=== PATIENT | male | born 1960 | race Caucasian/White ===

== ENCOUNTER 2020-09-12 09:58 | Inpatient (IN) ==
[2020-09-12] MEDS ORDERED: DEXTROSE 50% 25 GM/50 ML VIAL IV PRN (11:25)
[2020-09-12] MEDS ORDERED: GLUCAGON 1 MG VIAL IM PRN (11:25)
[2020-09-12] MEDS ORDERED: SODIUM CHLORIDE 0.9% 1,000 ML IV SCH (11:30)
[2020-09-12] MEDS ORDERED: HEPARIN DRIP 25,000 UNITS/500 ML PREMIX IV SCH (13:30)
[2020-09-12] MEDS ORDERED: HEPARIN DRIP 25,000 UNITS/500 ML PREMIX IV ONE (14:10)
[2020-09-12] MEDS ORDERED: CLORAZEPATE 7.5 MG TABLET PO PRN (14:45)
[2020-09-12] MEDS: CHLORHEXIDINE 4% SOLN 118 ML BOTTLE TOP SCH ×2 (16:00→22:28)
[2020-09-12] MEDS: ALBUTEROL/IPRATROPIUM 3 ML NEB RESP TX SCH ×2 (16:10→18:55)
[2020-09-12 16:12] LABS: ABG HCO3 21.7 MMOL/L (20-26); ABG PCO2 28.1 MM HG (35-48); ABG PH 7.506 (7.35-7.45); ABG PO2 87.2 MM HG (80-95); ABG TCO2 22.6 MMOL/L (23-27)
[2020-09-12 16:13] LABS: Basophils % 0.2 % (0.0-0.8); Hematocrit 43.8 VOL% (42.0-52.0); Hemoglobin 15.2 GM/DL (14.0-18.0); Immature Granulocytes % 0.4 %; Immature Granulocytes Absolute 0.07 #; Lymphocytes % 5.6 % (21.2-54.2); Mean Corpuscular HGB Conc 34.7 GM/DL (32-36); Mean Platelet Volume 11.4 FL (9.6-12.0); Monocytes % 3.7 % (1.7-12.7); Neutrophils % 90.1 % (38.7-73.9); Platelet Count 228 T/CUMM (130-400); Red Blood Count 4.66 MC/CUMM (3.8-5.5); Red Cell Distribution Width 13.2 % (9.3-17.3); White Blood Count 18.1 T/CUMM (4-12)
[2020-09-12 16:24] LABS: PT Patient Result 10.8 SECS (9.8-11.9)
[2020-09-12 16:36] LABS: Partial Thromboplastin Time 51.5 SECS (23.9-33.8)
[2020-09-12 16:50] LABS: CKMB % 3.2 %
[2020-09-12 16:51] LABS: Troponin I 39.7 NG/ML (0.00-0.045)
[2020-09-12 17:01] LABS: Albumin 4.2 G/DL (3.4-5.0); Bilirubin,Total 0.6 MG/DL (0.2-1.0); Calcium 9.2 MG/DL (8.5-10.1); Potassium 4.2 MMOL/L (3.5-5.1); Total Protein 8.3 G/DL (6.4-8.3)
[2020-09-12 20:44] LABS: CKMB % 2.6 %; Troponin I 35.8 NG/ML (0.00-0.045)
[2020-09-12] MEDS: CHLORHEXIDINE 0.12% ORAL RINSE 60 ML BOTTLE SWISH/SPIT SCH (22:04)
[2020-09-13] MEDS: ALBUTEROL/IPRATROPIUM 3 ML NEB RESP TX SCH ×3 (01:30→15:07)
[2020-09-13 02:38] LABS: CKMB % 2.3 %; Troponin I 34.5 NG/ML (0.00-0.045)
[2020-09-13] MEDS ORDERED: CEFUROXIME INJ 1,500 MG in SYRINGE 1 EACH IV ONE (05:00)
[2020-09-13] MEDS ORDERED: DIAZEPAM 5 MG TABLET PO ONE (05:00)
[2020-09-13 05:24] LABS: Basophils # 0.1 10*3/uL (0.0-0.2); Basophils % 0.3 % (0.0-0.8); Eosinophils # 0.1 10*3/uL (0.0-0.87); Eosinophils % 0.9 % (0.00-10.9); Hematocrit 39.9 VOL% (42.0-52.0); Hemoglobin 13.8 GM/DL (14.0-18.0); Immature Granulocytes % 0.3 %; Immature Granulocytes Absolute 0.05 #; Lymphocytes # 2.8 10*3/uL (1.4-4.0); Lymphocytes % 18.4 % (21.2-54.2); Mean Corpuscular HGB Conc 34.6 GM/DL (32-36); Mean Corpuscular Volume 93.9 FL (87-102); Mean Platelet Volume 11.3 FL (9.6-12.0); Monocytes % 8.6 % (1.7-12.7); Neutrophils % 71.5 % (38.7-73.9); Platelet Count 206 T/CUMM (130-400); Red Blood Count 4.25 MC/CUMM (3.8-5.5); Red Cell Distribution Width 13.2 % (9.3-17.3); White Blood Count 15.2 T/CUMM (4-12)
[2020-09-13] MEDS ORDERED: PAPAVERINE 60 MG/2 ML VIAL ONE (05:27)
[2020-09-13] MEDS ORDERED: VANCOMYCIN 1,000 MG VIAL ONE (05:27)
[2020-09-13] MEDS ORDERED: VANCOMYCIN 500 MG VIAL ONE (05:28)
[2020-09-13 05:41] LABS: Calcium 8.7 MG/DL (8.5-10.1); Osmolality,Calculated 280.5 MOS/KG (273-304); Potassium 3.6 MMOL/L (3.5-5.1)
[2020-09-13] MEDS ORDERED: PANTOPRAZOLE 40 MG VIAL IV ONE (06:00)
[2020-09-13] MEDS ORDERED: SODIUM CHLORIDE 0.9% 1,000 ML IV SCH (06:00)
[2020-09-13] MEDS: CHLORHEXIDINE 4% SOLN 118 ML BOTTLE TOP SCH ×2 (06:12→10:53)
[2020-09-13] MEDS ORDERED: LIDOCAINE 2% 5 ML VIAL ONE ×2 (06:19→10:49)
[2020-09-13] MEDS ORDERED: AMINOCAPROIC ACID 5,000 MG/20 ML VIAL ONE (06:19)
[2020-09-13] MEDS ORDERED: SUFentanil 250 MCG/5 ML AMP ONE (06:19)
[2020-09-13] MEDS ORDERED: VECURONIUM 10 MG VIAL IV ONE (06:19)
[2020-09-13] MEDS ORDERED: ETOMIDATE 40 MG/20 ML VIAL IV ONE (06:19)
[2020-09-13] MEDS ORDERED: MIDAZOLAM 10 MG/2 ML VIAL ONE ×3 (06:19→09:11)
[2020-09-13] MEDS ORDERED: ePHEDrine 50 MG/ML VIAL ONE (07:07)
[2020-09-13 07:38] LABS: ABG Base Excess 0.6 MMOL/L (-2.5-2.5); ABG PCO2 32.8 MM HG (35-48); ABG PH 7.464 (7.35-7.45); ABG TCO2 20.4 MMOL/L (23-27); Glucose Heart Surgery 112 MG/DL (74-106); Hematocrit Heart Surgery 41.1 PERCENT (42-52); Hemoglobin Heart Surgery 13.4 G/DL (14.0-18.0); Ionized Calcium Arterial 1.09 MMOL/L (1.21-1.46); PCO2 Patient Temp Arterial 32.8 MMHG; PH Patient Temp Arterial 7.464; Patient Temperature 37 CELCIUS; Potassium Heart/CVR 3.7 MMOL/L (3.5-5.1); Sodium Heart/CVR 138 MMOL/L (135-145)
[2020-09-13] MEDS ORDERED: CALCIUM CHLORIDE 1,000 MG/10 ML VIAL IV ONE ×2 (09:10)
[2020-09-13] MEDS ORDERED: LACTATED RINGERS 1,000 ML IV ONE ×3 (09:22→15:23)
[2020-09-13] MEDS ORDERED: SODIUM CHLORIDE 0.9% 250 ML IV ONE (09:22)
[2020-09-13] MEDS ORDERED: SODIUM CHLORIDE 0.9% 1,000 ML IV ONE (09:22)
[2020-09-13] MEDS ORDERED: HEPARIN/NACL 0.9% 2 UNITS/ML 500 ML IV ONE (09:22)
[2020-09-13] MEDS ORDERED: PHENYLEPHRINE 1 MG/10 ML SYRINGE IV ONE (09:22)
[2020-09-13] MEDS ORDERED: SEVOFLURANE 1 UNIT/15 MINUTE INH ONE ×24 (09:22→12:25)
[2020-09-13 09:26] LABS: Hemoglobin Heart Surgery 8.7 G/DL (14.0-18.0); PH Patient Temp Venous 7.41; PO2 Patient Temp Venous 46.6 MM HG; VBG Base Excess 0.2 MEQ/L (0-4); VBG HCO3 24.4 MEQ/L (24-28); VBG Oxygen Saturation 81.3 %; VBG PH 7.41; VBG PO2 46.6 MMHG (17-40); VBG Total CO2 22.9 MMOL/L
[2020-09-13 10:01] LABS: Hematocrit Heart Surgery 26.9 PERCENT (42-52); Hemoglobin Heart Surgery 8.7 G/DL (14.0-18.0); PCO2 Patient Temp Venous 38.4 MM HG; PH Patient Temp Venous 7.394; PO2 Patient Temp Venous 50.8 MM HG; Potassium Heart/CVR 3.8 MMOL/L (3.5-5.1); VBG Base Excess -1.2 MEQ/L (0-4); VBG HCO3 23.2 MEQ/L (24-28); VBG Oxygen Saturation 84.6 %; VBG PCO2 38.4 MMHG (41-51); VBG PH 7.394; VBG PO2 50.8 MMHG (17-40); VBG Total CO2 21.7 MMOL/L
[2020-09-13 10:21] LABS: Bacteria,Urine Occasional /HPF (Few); Bilirubin,Urine Negative (Negative); Blood, Urine Negative (Negative); Glucose,Urine (UA) Negative (Negative); Ketones,Urine Negative (Negative); Mucus,Urine Occasional /LPF (Occasional); Nitrite,Urine Negative (Negative); Protein,Urine Negative; RBC,Urine 3 /HPF (0-4); Urine Appearance CLEAR (Clear); Urine Color Yellow (Yellow); Urine Specific Gravity 1.027 (1.001-1.035)
[2020-09-13 10:23] LABS: Hematocrit Heart Surgery 25.7 PERCENT (42-52); Hemoglobin Heart Surgery 8.3 G/DL (14.0-18.0); PCO2 Patient Temp Venous 38.8 MM HG; PH Patient Temp Venous 7.426; Potassium Heart/CVR 3.7 MMOL/L (3.5-5.1); VBG Base Excess 1.2 MEQ/L (0-4); VBG HCO3 25.3 MEQ/L (24-28); VBG Oxygen Saturation 84.3 %; VBG PCO2 38.8 MMHG (41-51); VBG PH 7.426; VBG Total CO2 23.7 MMOL/L
[2020-09-13] MEDS ORDERED: POTASSIUM CHLORIDE RIDER 100 ML IV ONE (10:34)
[2020-09-13] MEDS ORDERED: CALCIUM CHLORIDE 1,000 MG/10 ML SYRINGE IV ONE (10:34)
[2020-09-13] MEDS ORDERED: SODIUM BICARBONATE 50 MEQ/50 ML VIAL IV ONE ×2 (10:34→10:49)
[2020-09-13] MEDS ORDERED: NITROPRUSSIDE 50 MG/2 ML VIAL ONE (10:34)
[2020-09-13] MEDS ORDERED: EPINEPHrine 1 MG/10 ML SYRINGE ONE (10:35)
[2020-09-13] MEDS ORDERED: ALBUMIN 5% 12.5 GM/250 ML VIAL IV ONE (10:36)
[2020-09-13] MEDS ORDERED: PHENYLEPHRINE DRIP 40 MG/250 ML PREMIX IV ONE (10:38)
[2020-09-13] MEDS ORDERED: DEXTROSE 5% KCL 20 MEQ 20 MEQ/1,000 ML BAG IV ONE (10:47)
[2020-09-13] MEDS ORDERED: MANNITOL 100 GM/500 ML BAG IV ONE (10:47)
[2020-09-13] MEDS ORDERED: PROTAMINE SULFATE 250 MG/25 ML VIAL IV ONE (10:47)
[2020-09-13] MEDS ORDERED: ALBUMIN 25% 25 GM/100 ML VIAL IV ONE (10:47)
[2020-09-13] MEDS ORDERED: MAGNESIUM SULFATE 5 GM/10 ML VIAL IV ONE (10:47)
[2020-09-13] MEDS ORDERED: PROTAMINE SULFATE 50 MG/5 ML VIAL IV ONE ×2 (10:48→12:55)
[2020-09-13] MEDS ORDERED: FUROSEMIDE 20 MG/2 ML VIAL ONE (10:48)
[2020-09-13] MEDS ORDERED: HEPARIN 10,000 UNIT/10 ML VIAL ONE (10:48)
[2020-09-13] MEDS ORDERED: methylPREDNISolone SOD SUC 1,000 MG/8 ML VIAL ONE (10:49)
[2020-09-13] MEDS: CHLORHEXIDINE 0.12% ORAL RINSE 60 ML BOTTLE SWISH/SPIT SCH ×2 (10:53→21:55)
[2020-09-13 10:58] LABS: Hematocrit Heart Surgery 26.8 PERCENT (42-52); Hemoglobin Heart Surgery 8.6 G/DL (14.0-18.0); PCO2 Patient Temp Venous 34.1 MM HG; PH Patient Temp Venous 7.473; PO2 Patient Temp Venous 36.9 MM HG; VBG Base Excess 1.6 MEQ/L (0-4); VBG HCO3 25.4 MEQ/L (24-28); VBG PCO2 34.1 MMHG (41-51); VBG PH 7.473; VBG PO2 36.9 MMHG (17-40); VBG Total CO2 23.1 MMOL/L
[2020-09-13 11:44] LABS: ABG Base Excess -0.6 MMOL/L (-2.5-2.5); ABG HCO3 23.9 MMOL/L (20-26); ABG PCO2 38.2 MM HG (35-48); ABG PH 7.404 (7.35-7.45); ABG PO2 86.7 MM HG (80-95); ABG TCO2 22.1 MMOL/L (23-27); Glucose Heart Surgery 206 MG/DL (74-106); Hematocrit Heart Surgery 27.2 PERCENT (42-52); Hemoglobin Heart Surgery 8.8 G/DL (14.0-18.0); Ionized Calcium Arterial 1.19 MMOL/L (1.21-1.46); PCO2 Patient Temp Arterial 38.2 MMHG; PH Patient Temp Arterial 7.404; PO2 Patient Temp Arterial 86.7 MM HG; Patient Temperature 37 CELCIUS; Potassium Heart/CVR 3.2 MMOL/L (3.5-5.1); Sodium Heart/CVR 136 MMOL/L (135-145)
[2020-09-13] MEDS ORDERED: THROMBIN TOPICAL (RECOMBINANT) 5,000 UNIT VIAL TOP ONE (12:55)
[2020-09-13] MEDS ORDERED: SODIUM CHLORIDE 0.9% 1,000 ML IV PRN ×2 (12:57→19:57)
[2020-09-13] MEDS: SODIUM CHLORIDE 0.45% 1,000 ML IV SCH ×2 (13:00)
[2020-09-13] MEDS ORDERED: NITROPRUSSIDE 100 MG in DEXTROSE 5% 250 ML IV PRN (13:03)
[2020-09-13] MEDS ORDERED: MIDAZOLAM 10 MG/2 ML VIAL IV PRN (13:03)
[2020-09-13] MEDS ORDERED: INSULIN REGULAR 100 UNIT/ML IV PRN (13:03)
[2020-09-13] MEDS ORDERED: MAGNESIUM SULF RIDER 4 GM in PREMIX 1 EACH IV PRN (13:03)
[2020-09-13] MEDS ORDERED: ONDANSETRON 4 MG/2 ML VIAL IV PRN (13:03)
[2020-09-13] MEDS ORDERED: MAGNESIUM SULF RIDER 2 GM in PREMIX 1 EACH IV PRN (13:03)
[2020-09-13] MEDS ORDERED: INSULIN REGULAR DRIP 100 ML IV SCH (13:03)
[2020-09-13] MEDS ORDERED: ACETAMINOPHEN 650 MG SUPP RECTAL PRN (13:03)
[2020-09-13] MEDS ORDERED: INSULIN REGULAR 100 UNIT/ML IV ONE (13:03)
[2020-09-13] MEDS ORDERED: MORPHINE 4 MG/1 ML VIAL IV PRN (13:03)
[2020-09-13] MEDS ORDERED: CALCIUM CHLORIDE 1,000 MG/10 ML SYRINGE IV PRN (13:03)
[2020-09-13] MEDS ORDERED: VECURONIUM 10 MG VIAL IV PRN ×2 (13:03)
[2020-09-13] MEDS ORDERED: DEXTROSE 50% 25 GM/50 ML VIAL IV PRN ×2 (13:03)
[2020-09-13] MEDS ORDERED: LACTATED RINGERS 250 ML IV PRN (13:03)
[2020-09-13] MEDS ORDERED: POTASSIUM CHLORIDE RIDER 10 MEQ in PREMIX 1 EACH IV PRN (13:03)
[2020-09-13] MEDS ORDERED: PHENYLEPHRINE DRIP 20 MG/250 ML PREMIX IV ONE (13:11)
[2020-09-13 13:39] LABS: Basophils % 0.2 % (0.0-0.8); Eosinophils # 0.1 10*3/uL (0.0-0.87); Eosinophils % 0.5 % (0.00-10.9); Hematocrit 21.9 VOL% (42.0-52.0); Hemoglobin 7.7 GM/DL (14.0-18.0); Immature Granulocytes % 0.8 %; Immature Granulocytes Absolute 0.14 #; Lymphocytes # 1.3 10*3/uL (1.4-4.0); Mean Corpuscular HGB Conc 35.2 GM/DL (32-36); Mean Corpuscular Volume 96.5 FL (87-102); Mean Platelet Volume 10.3 FL (9.6-12.0); Monocytes % 5.6 % (1.7-12.7); Neutrophils % 85.9 % (38.7-73.9); Platelet Count 173 T/CUMM (130-400); Red Blood Count 2.27 MC/CUMM (3.8-5.5); Red Cell Distribution Width 13.2 % (9.3-17.3); White Blood Count 18.5 T/CUMM (4-12)
[2020-09-13 13:42] LABS: ABG Base Excess -0.4 MMOL/L (-2.5-2.5); ABG HCO3 24.1 MMOL/L (20-26); ABG Oxygen Saturation 99.4 % (95-100); ABG PCO2 44.5 MM HG (35-48); ABG TCO2 23.5 MMOL/L (23-27); Glucose Heart Surgery 178 MG/DL (74-106); Hematocrit Heart Surgery 24.6 PERCENT (42-52); Hemoglobin Heart Surgery 7.9 G/DL (14.0-18.0)
[2020-09-13] MEDS: PHENYLEPHRINE DRIP 40 MG/250 ML PREMIX IV PRN ×3 (13:46→22:19)
[2020-09-13 13:51] LABS: INR 1.3; PT Patient Result 13.7 SECS (9.8-11.9)
[2020-09-13 14:17] LABS: Albumin 2.9 G/DL (3.4-5.0); Bilirubin,Total 1.4 MG/DL (0.2-1.0); Calcium 8.5 MG/DL (8.5-10.1); Osmolality,Calculated 290.1 MOS/KG (273-304); Total Protein 5.7 G/DL (6.4-8.3)
[2020-09-13 14:24] LABS: Hematocrit Heart Surgery 27.2 PERCENT (42-52); Hemoglobin Heart Surgery 8.8 G/DL (14.0-18.0); PCO2 Patient Temp Venous 57.7 MM HG; PH Patient Temp Venous 7.255; PO2 Patient Temp Venous 35.2 MM HG; Potassium Heart/CVR 4.7 MMOL/L (3.5-5.1); VBG Base Excess -2.1 MEQ/L (0-4); VBG Oxygen Saturation 55.8 %; VBG PCO2 57.7 MMHG (41-51); VBG PH 7.255; VBG PO2 35.2 MMHG (17-40); VBG Total CO2 24.3 MMOL/L
[2020-09-13 14:27] LABS: CKMB % 4.4 %
[2020-09-13 14:29] LABS: Troponin I 45.7 NG/ML (0.00-0.045)
[2020-09-13] MEDS: ALBUMIN 5% 12.5 GM in PREMIX 1 EACH IV PRN ×3 (14:30→17:47)
[2020-09-13 15:14] LABS: ABG Base Excess -2.2 MMOL/L (-2.5-2.5); ABG HCO3 22.6 MMOL/L (20-26); ABG Oxygen Saturation 96.9 % (95-100); ABG PCO2 40.2 MM HG (35-48); ABG PH 7.365 (7.35-7.45); ABG PO2 87.4 MM HG (80-95); ABG TCO2 21.3 MMOL/L (23-27); Glucose Heart Surgery 177 MG/DL (74-106); Hematocrit Heart Surgery 27.7 PERCENT (42-52); Hemoglobin Heart Surgery 8.9 G/DL (14.0-18.0)
[2020-09-13] MEDS: KETOROLAC 30 MG/1 ML VIAL IV SCH ×3 (15:20→22:40)
[2020-09-13] MEDS: POTASSIUM CHLORIDE RIDER 20 MEQ in PREMIX 1 EACH IV PRN (15:28)
[2020-09-13 17:18] LABS: ABG Base Excess -1.1 MMOL/L (-2.5-2.5); ABG HCO3 23.5 MMOL/L (20-26); ABG Oxygen Saturation 98.1 % (95-100); ABG PCO2 39.1 MM HG (35-48); ABG TCO2 20.5 MMOL/L (23-27); Glucose Heart Surgery 154 MG/DL (74-106); Hematocrit Heart Surgery 42.1 PERCENT (42-52); Hemoglobin Heart Surgery 13.7 G/DL (14.0-18.0); Potassium Heart/CVR 4.6 MMOL/L (3.5-5.1)
[2020-09-13] MEDS ORDERED: ALBUTEROL/IPRATROPIUM 3 ML NEB RESP TX ONE (19:19)
[2020-09-13] MEDS ORDERED: FUROSEMIDE 40 MG/4 ML VIAL IV ONE (19:35)
[2020-09-13 19:45] LABS: ABG Base Excess -0.6 MMOL/L (-2.5-2.5); ABG HCO3 23.9 MMOL/L (20-26); ABG Oxygen Saturation 98.7 % (95-100); ABG PCO2 38.7 MM HG (35-48); ABG TCO2 22.1 MMOL/L (23-27); Glucose Heart Surgery 132 MG/DL (74-106); Hematocrit Heart Surgery 27.8 PERCENT (42-52); Hemoglobin Heart Surgery 8.9 G/DL (14.0-18.0); Potassium Heart/CVR 4.7 MMOL/L (3.5-5.1)
[2020-09-13] MEDS: DOBUTamine 500 MG/250 ML PREMIX IV SCH (20:13)
[2020-09-13] MEDS ORDERED: DEXMEDETOMIDINE 400 MCG in SODIUM CHLORIDE 0.9% 96 ML IV PRN (20:15)
[2020-09-13] MEDS: MIDAZOLAM 2 MG/2 ML VIAL IV PRN ×2 (20:15→21:29)
[2020-09-13] MEDS: CEFUROXIME INJ 1,500 MG in SYRINGE 1 EACH IV SCH (21:57)
[2020-09-13 23:04] LABS: CKMB % 3.5 %; Troponin I 25.3 NG/ML (0.00-0.045)
[2020-09-13] MEDS ORDERED: HALOPERIDOL 5 MG/ML AMP IV ONE (23:44)
[2020-09-14 00:22] LABS: ABG Base Excess 1.9 MMOL/L (-2.5-2.5); ABG HCO3 25.6 MMOL/L (20-26); ABG Oxygen Saturation 97.1 % (95-100); ABG PCO2 35.7 MM HG (35-48); ABG PH 7.473 (7.35-7.45); ABG PO2 100.1 MM HG (80-95); ABG TCO2 26.7 MMOL/L (23-27); Glucose Heart Surgery 139 MG/DL (74-106); Hemoglobin Heart Surgery 8.3 G/DL (14.0-18.0); Potassium Heart/CVR 3.6 MMOL/L (3.5-5.1)
[2020-09-14] MEDS: POTASSIUM CHLORIDE RIDER 20 MEQ in PREMIX 1 EACH IV PRN ×2 (00:48→05:38)
[2020-09-14] MEDS: KETOROLAC 30 MG/1 ML VIAL IV SCH ×5 (02:20→20:12)
[2020-09-14 03:03] LABS: ABG Base Excess 0.9 MMOL/L (-2.5-2.5); ABG HCO3 25.2 MMOL/L (20-26); ABG PCO2 35.6 MM HG (35-48); ABG PH 7.448 (7.35-7.45); ABG TCO2 22.3 MMOL/L (23-27); Glucose Heart Surgery 134 MG/DL (74-106); Hematocrit Heart Surgery 31.2 PERCENT (42-52); Hemoglobin Heart Surgery 10.1 G/DL (14.0-18.0); Potassium Heart/CVR 4.1 MMOL/L (3.5-5.1)
[2020-09-14 04:34] LABS: ABG Base Excess 0.7 MMOL/L (-2.5-2.5); ABG HCO3 24.2 MMOL/L (20-26); ABG Oxygen Saturation 97.5 % (95-100); ABG PCO2 34.6 MM HG (35-48); ABG PH 7.463 (7.35-7.45); ABG PO2 105.9 MM HG (80-95); ABG TCO2 25.3 MMOL/L (23-27); Glucose Heart Surgery 126 MG/DL (74-106); Hemoglobin Heart Surgery 10.2 G/DL (14.0-18.0); Potassium Heart/CVR 3.9 MMOL/L (3.5-5.1)
[2020-09-14 04:56] LABS: Hematocrit 27.5 VOL% (42.0-52.0); Hemoglobin 9.8 GM/DL (14.0-18.0); Immature Granulocytes % 0.5 %; Immature Granulocytes Absolute 0.05 #; Lymphocytes # 0.9 10*3/uL (1.4-4.0); Lymphocytes % 9.3 % (21.2-54.2); Mean Corpuscular HGB Conc 35.6 GM/DL (32-36); Mean Corpuscular Volume 87.6 FL (87-102); Mean Platelet Volume 10.9 FL (9.6-12.0); Monocytes % 7.1 % (1.7-12.7); Neutrophils % 83.1 % (38.7-73.9); Platelet Count 125 T/CUMM (130-400); Red Blood Count 3.14 MC/CUMM (3.8-5.5); Red Cell Distribution Width 14.6 % (9.3-17.3); White Blood Count 9.9 T/CUMM (4-12)
[2020-09-14 05:15] LABS: Albumin 3.2 G/DL (3.4-5.0); Bilirubin,Direct 0.42 MG/DL (0.0-0.20); Bilirubin,Total 1.1 MG/DL (0.2-1.0); Calcium 7.5 MG/DL (8.5-10.1); Osmolality,Calculated 290.8 MOS/KG (273-304); Potassium 4.1 MMOL/L (3.5-5.1); Total Protein 5.5 G/DL (6.4-8.3)
[2020-09-14 05:16] LABS: CKMB % 4.1 %
[2020-09-14 05:18] LABS: Troponin I 24.5 NG/ML (0.00-0.045)
[2020-09-14] MEDS ORDERED: FUROSEMIDE 40 MG/4 ML VIAL IV ONE ×2 (05:28→17:54)
[2020-09-14 06:24] LABS: Hypochromasia 1+; Microcytosis 1+
[2020-09-14] MEDS: PHENYLEPHRINE DRIP 40 MG/250 ML PREMIX IV PRN (06:35)
[2020-09-14 07:01] LABS: ABG Base Excess 1.3 MMOL/L (-2.5-2.5); ABG HCO3 25.5 MMOL/L (20-26); ABG Oxygen Saturation 98.8 % (95-100); ABG PCO2 38.1 MM HG (35-48); ABG PH 7.432 (7.35-7.45); ABG TCO2 23.1 MMOL/L (23-27); Glucose Heart Surgery 125 MG/DL (74-106); Hematocrit Heart Surgery 30.6 PERCENT (42-52); Hemoglobin Heart Surgery 9.9 G/DL (14.0-18.0); Potassium Heart/CVR 4.1 MMOL/L (3.5-5.1)
[2020-09-14] MEDS: MORPHINE 10 MG/1 ML VIAL IV PRN ×3 (07:44→15:15)
[2020-09-14] MEDS ORDERED: LIDOCAINE 1%/EPI INJ 20 ML VIAL ONE (08:36)
[2020-09-14] MEDS ORDERED: PANTOPRAZOLE 40 MG VIAL IV ONE (09:07)
[2020-09-14 09:22] LABS: ABG Base Excess 0.6 MMOL/L (-2.5-2.5); ABG Oxygen Saturation 98.8 % (95-100); ABG PCO2 37.1 MM HG (35-48); ABG PH 7.431 (7.35-7.45); ABG TCO2 22.5 MMOL/L (23-27)
[2020-09-14 11:22] LABS: ABG Base Excess -0.4 MMOL/L (-2.5-2.5); ABG HCO3 24.1 MMOL/L (20-26); ABG Oxygen Saturation 97.9 % (95-100); ABG PCO2 37.7 MM HG (35-48); ABG PH 7.411 (7.35-7.45); ABG PO2 97.6 MM HG (80-95); ABG TCO2 21.9 MMOL/L (23-27); Glucose Heart Surgery 120 MG/DL (74-106); Hematocrit Heart Surgery 29.7 PERCENT (42-52); Hemoglobin Heart Surgery 9.6 G/DL (14.0-18.0); Potassium Heart/CVR 3.9 MMOL/L (3.5-5.1)
[2020-09-14] MEDS: CHLORHEXIDINE 0.12% ORAL RINSE 60 ML BOTTLE SWISH/SPIT SCH ×2 (11:25→20:14)
[2020-09-14] MEDS: CEFUROXIME INJ 1,500 MG in SYRINGE 1 EACH IV SCH ×2 (11:25→20:14)
[2020-09-14] MEDS: INSULIN REGULAR 100 UNIT/ML SUBCUT SCH ×3 (11:37→20:25)
[2020-09-14] MEDS: SODIUM CHLORIDE 0.45% 1,000 ML IV SCH ×2 (14:28)
[2020-09-14 15:46] LABS: CKMB % 3.2 %
[2020-09-14 15:48] LABS: Troponin I 23.1 NG/ML (0.00-0.045)
[2020-09-15] MEDS ORDERED: FUROSEMIDE 40 MG/4 ML VIAL IV ONE ×2 (02:05→18:09)
[2020-09-15 04:21] LABS: Basophils % 0.1 % (0.0-0.8); Eosinophils % 0.1 % (0.00-10.9); Hematocrit 22.9 VOL% (42.0-52.0); Hemoglobin 8.1 GM/DL (14.0-18.0); Immature Granulocytes % 0.8 %; Immature Granulocytes Absolute 0.13 #; Lymphocytes % 12.7 % (21.2-54.2); Mean Corpuscular HGB Conc 35.4 GM/DL (32-36); Mean Corpuscular Volume 90.2 FL (87-102); Mean Platelet Volume 12.1 FL (9.6-12.0); Monocytes % 7.7 % (1.7-12.7); NRBC # 0.02 10*3/uL; Neutrophils % 78.6 % (38.7-73.9); Platelet Count 106 T/CUMM (130-400); Red Blood Count 2.54 MC/CUMM (3.8-5.5); Red Cell Distribution Width 14.8 % (9.3-17.3)
[2020-09-15] MEDS: MORPHINE 10 MG/1 ML VIAL IV PRN (04:29)
[2020-09-15 04:47] LABS: Hypochromasia 1+; Microcytosis 1+
[2020-09-15 04:48] LABS: Platelet Estimate Decreased
[2020-09-15 04:50] LABS: Albumin 3.2 G/DL (3.4-5.0); Bilirubin,Direct 0.31 MG/DL (0.0-0.20); Bilirubin,Total 1.1 MG/DL (0.2-1.0); Calcium 7.4 MG/DL (8.5-10.1); Osmolality,Calculated 282.7 MOS/KG (273-304); Potassium 3.7 MMOL/L (3.5-5.1); Total Protein 5.8 G/DL (6.4-8.3)
[2020-09-15] MEDS: POTASSIUM CHLORIDE RIDER 20 MEQ in PREMIX 1 EACH IV PRN (05:40)
[2020-09-15] MEDS: INSULIN REGULAR 100 UNIT/ML SUBCUT SCH (08:10)
[2020-09-15] MEDS: CLORAZEPATE 7.5 MG TABLET PO PRN ×2 (08:11→16:00)
[2020-09-15] MEDS: ASPIRIN EC 81 MG TABLET PO SCH (08:11)
[2020-09-15] MEDS: CHLORHEXIDINE 0.12% ORAL RINSE 60 ML BOTTLE SWISH/SPIT SCH ×2 (08:12→20:59)
[2020-09-15] MEDS ORDERED: MAGNESIUM SULF RIDER 4 GM in PREMIX 1 EACH IV PRN (09:18)
[2020-09-15] MEDS ORDERED: MAGNESIUM HYDROXIDE SUSP 30 ML UDCUP PO PRN (09:18)
[2020-09-15] MEDS ORDERED: GLUCAGON 1 MG VIAL IM PRN (09:18)
[2020-09-15] MEDS ORDERED: ONDANSETRON 4 MG/2 ML VIAL IV PRN (09:18)
[2020-09-15] MEDS ORDERED: ZALEPLON 5 MG CAPSULE PO PRN (09:18)
[2020-09-15] MEDS ORDERED: MAGNESIUM SULF RIDER 2 GM in PREMIX 1 EACH IV PRN (09:18)
[2020-09-15] MEDS ORDERED: ALUMINUM/MAGNES/SIMETH MAX STR 30 ML UDCUP PO PRN (09:18)
[2020-09-15] MEDS ORDERED: DEXTROSE 50% 25 GM/50 ML VIAL IV PRN (09:18)
[2020-09-15] MEDS ORDERED: SODIUM CHLOR 0.45% KCL 20 MEQ 20 MEQ/1,000 ML BAG IV SCH (09:30)
[2020-09-15] MEDS: PANTOPRAZOLE 40 MG TABLET PO SCH (11:19)
[2020-09-15 11:33] LABS: CKMB % 1.3 %
[2020-09-15 11:35] LABS: Troponin I 15.4 NG/ML (0.00-0.045)
[2020-09-15] MEDS ORDERED: ALBUTEROL/IPRATROPIUM 3 ML NEB RESP TX ONE (12:09)
[2020-09-15] MEDS: oxyCODONE/ACETAMINOPHEN 5-325 MG TABLET PO PRN (12:16)
[2020-09-15] MEDS: ALBUTEROL/IPRATROPIUM 3 ML NEB RESP TX SCH ×2 (13:36→19:30)
[2020-09-15] MEDS ORDERED: HYDROmorphone 2 MG/1 ML VIAL IV PRN (18:09)
[2020-09-15] MEDS ORDERED: ALPRAZolam 0.5 MG TABLET PO PRN (18:11)
[2020-09-15] MEDS: DOBUTamine 500 MG/250 ML PREMIX IV SCH (18:33)
[2020-09-16] MEDS: ALBUTEROL/IPRATROPIUM 3 ML NEB RESP TX SCH ×4 (00:08→19:43)
[2020-09-16 05:34] LABS: Basophils % 0.2 % (0.0-0.8); Eosinophils # 0.1 10*3/uL (0.0-0.87); Eosinophils % 0.8 % (0.00-10.9); Hematocrit 28.8 VOL% (42.0-52.0); Immature Granulocytes % 1.1 %; Immature Granulocytes Absolute 0.14 #; Lymphocytes # 1.5 10*3/uL (1.4-4.0); Lymphocytes % 11.5 % (21.2-54.2); Mean Corpuscular HGB Conc 34.7 GM/DL (32-36); Mean Corpuscular Volume 89.7 FL (87-102); Mean Platelet Volume 11.9 FL (9.6-12.0); Monocytes % 9.5 % (1.7-12.7); NRBC # 0.16 10*3/uL; Neutrophils % 76.9 % (38.7-73.9); Platelet Count 121 T/CUMM (130-400); Red Cell Distribution Width 15.5 % (9.3-17.3); White Blood Count 13.2 T/CUMM (4-12)
[2020-09-16 05:36] LABS: Red Blood Count 3.21 MC/CUMM (3.8-5.5)
[2020-09-16 05:37] LABS: Albumin 3.1 G/DL (3.4-5.0); Bilirubin,Direct 0.52 MG/DL (0.0-0.20); Bilirubin,Total 1.2 MG/DL (0.2-1.0); Calcium 7.8 MG/DL (8.5-10.1); Osmolality,Calculated 281.5 MOS/KG (273-304); Potassium 3.4 MMOL/L (3.5-5.1); Total Protein 5.9 G/DL (6.4-8.3)
[2020-09-16] MEDS ORDERED: FUROSEMIDE 40 MG/4 ML VIAL IV ONE ×2 (06:00)
[2020-09-16 06:37] LABS: Alanine Aminotransferase 161 U/L (16-61); Albumin 3.1 G/DL (3.4-5.0); Alkaline Phosphatase 62 U/L (45-117); Aspartate Amino Transferase 92 U/L (0-37); Bilirubin,Indirect 0.6 MG/DL (0.0-1.0); Total Protein 5.7 G/DL (6.4-8.3)
[2020-09-16] MEDS: DOCUSATE SODIUM 100 MG CAPSULE PO SCH (09:00)
[2020-09-16] MEDS: PANTOPRAZOLE 40 MG TABLET PO SCH (09:00)
[2020-09-16] MEDS: FERROUS SULFATE 325 MG TABLET PO SCH (09:01)
[2020-09-16] MEDS: ASPIRIN EC 81 MG TABLET PO SCH (09:01)
[2020-09-16] MEDS: CHLORHEXIDINE 0.12% ORAL RINSE 60 ML BOTTLE SWISH/SPIT SCH ×2 (09:02→20:18)
[2020-09-16] MEDS ORDERED: NICOTINE 21 MG/24 HR PATCH TRANSDERM PRN (09:06)
[2020-09-16] MEDS ORDERED: FUROSEMIDE 40 MG/4 ML VIAL IV SCH (16:00)
[2020-09-16] MEDS: CLORAZEPATE 7.5 MG TABLET PO PRN (20:18)
[2020-09-16] MEDS: ACETAMINOPHEN 325 MG TABLET PO PRN (20:18)
[2020-09-17] MEDS: ALBUTEROL/IPRATROPIUM 3 ML NEB RESP TX SCH ×4 (00:08→18:52)
[2020-09-17 05:58] LABS: Basophils % 0.2 % (0.0-0.8); Eosinophils # 0.2 10*3/uL (0.0-0.87); Eosinophils % 1.4 % (0.00-10.9); Hematocrit 30.4 VOL% (42.0-52.0); Hemoglobin 10.4 GM/DL (14.0-18.0); Immature Granulocytes % 1.1 %; Immature Granulocytes Absolute 0.18 #; Lymphocytes # 2.1 10*3/uL (1.4-4.0); Lymphocytes % 12.8 % (21.2-54.2); Mean Corpuscular HGB Conc 34.2 GM/DL (32-36); Mean Corpuscular Volume 89.9 FL (87-102); Mean Platelet Volume 11.2 FL (9.6-12.0); Monocytes % 11.2 % (1.7-12.7); NRBC # 0.06 10*3/uL; Neutrophils % 73.3 % (38.7-73.9); Platelet Count 164 T/CUMM (130-400); Red Blood Count 3.38 MC/CUMM (3.8-5.5); Red Cell Distribution Width 14.9 % (9.3-17.3); White Blood Count 16.2 T/CUMM (4-12)
[2020-09-17 06:13] LABS: Albumin 3.1 G/DL (3.4-5.0); Bilirubin,Direct 0.52 MG/DL (0.0-0.20); Bilirubin,Indirect 1.6 MG/DL (0.0-1.0); Bilirubin,Total 2.1 MG/DL (0.2-1.0); Total Protein 5.7 G/DL (6.4-8.3)
[2020-09-17 06:15] LABS: Alanine Aminotransferase 129 U/L (16-61); Alkaline Phosphatase 63 U/L (45-117); Aspartate Amino Transferase 60 U/L (0-37); Blood Urea Nitrogen 18 MG/DL (7-18); Calcium 8.4 MG/DL (8.5-10.1); Carbon Dioxide 27 MMOL/L (21-32); Estimated Glom Filtration Rate 105 ML/MIN; Glucose 94 MG/DL (74-106); Osmolality,Calculated 278.5 MOS/KG (273-304); Potassium 3.1 MMOL/L (3.5-5.1); Sodium 139 MMOL/L (136-145); Total Protein 6.3 G/DL (6.4-8.3)
[2020-09-17] MEDS ORDERED: FUROSEMIDE 40 MG TABLET PO SCH (09:00)
[2020-09-17] MEDS ORDERED: FUROSEMIDE 20 MG TABLET PO SCH (09:00)
[2020-09-17] MEDS: ASPIRIN EC 81 MG TABLET PO SCH (09:08)
[2020-09-17] MEDS: CHLORHEXIDINE 0.12% ORAL RINSE 60 ML BOTTLE SWISH/SPIT SCH ×2 (09:09→21:45)
[2020-09-17] MEDS: POTASSIUM CHLORIDE 20 MEQ TABLET PO PRN ×2 (09:09→12:09)
[2020-09-17] MEDS: DOCUSATE SODIUM 100 MG CAPSULE PO SCH (09:09)
[2020-09-17] MEDS: FERROUS SULFATE 325 MG TABLET PO SCH (09:09)
[2020-09-17] MEDS: PANTOPRAZOLE 40 MG TABLET PO SCH (09:09)
[2020-09-17] MEDS: POTASSIUM CHLORIDE 10 MEQ TABLET PO SCH (09:09)
[2020-09-17] MEDS: oxyCODONE/ACETAMINOPHEN 5-325 MG TABLET PO PRN ×2 (09:17→19:24)
[2020-09-17] MEDS: CLORAZEPATE 7.5 MG TABLET PO PRN (09:18)
[2020-09-17] MEDS: LEVOFLOXACIN 500 MG TABLET PO SCH (12:08)
[2020-09-17] MEDS: ACETAMINOPHEN 325 MG TABLET PO PRN (21:30)
[2020-09-18] MEDS: ALBUTEROL/IPRATROPIUM 3 ML NEB RESP TX SCH ×4 (00:36→21:43)
[2020-09-18] MEDS: oxyCODONE/ACETAMINOPHEN 5-325 MG TABLET PO PRN ×2 (04:17→20:01)
[2020-09-18] MEDS: LEVOFLOXACIN 500 MG TABLET PO SCH (09:26)
[2020-09-18] MEDS: PANTOPRAZOLE 40 MG TABLET PO SCH (09:27)
[2020-09-18] MEDS: POTASSIUM CHLORIDE 10 MEQ TABLET PO SCH (09:27)
[2020-09-18] MEDS: ASPIRIN EC 81 MG TABLET PO SCH (09:27)
[2020-09-18] MEDS: CHLORHEXIDINE 0.12% ORAL RINSE 60 ML BOTTLE SWISH/SPIT SCH ×2 (09:27→21:00)
[2020-09-18] MEDS: FUROSEMIDE 20 MG TABLET PO SCH (09:27)
[2020-09-18] MEDS: FERROUS SULFATE 325 MG TABLET PO SCH (09:27)
[2020-09-18] MEDS: DOCUSATE SODIUM 100 MG CAPSULE PO SCH (09:27)
[2020-09-18] MEDS: CLORAZEPATE 7.5 MG TABLET PO PRN ×2 (13:51→20:00)
[2020-09-19] MEDS: ALBUTEROL/IPRATROPIUM 3 ML NEB RESP TX SCH ×4 (00:25→19:08)
[2020-09-19] MEDS: oxyCODONE/ACETAMINOPHEN 5-325 MG TABLET PO PRN ×3 (02:30→21:42)
[2020-09-19 07:24] LABS: Basophils # 0.1 10*3/uL (0.0-0.2); Basophils % 0.4 % (0.0-0.8); Eosinophils # 0.7 10*3/uL (0.0-0.87); Eosinophils % 4.5 % (0.00-10.9); Hematocrit 31.7 VOL% (42.0-52.0); Hemoglobin 10.9 GM/DL (14.0-18.0); Immature Granulocytes % 1.2 %; Immature Granulocytes Absolute 0.17 #; Lymphocytes # 2.4 10*3/uL (1.4-4.0); Lymphocytes % 16.1 % (21.2-54.2); Mean Corpuscular HGB Conc 34.4 GM/DL (32-36); Mean Corpuscular Volume 89.5 FL (87-102); Mean Platelet Volume 10.2 FL (9.6-12.0); Monocytes % 13.1 % (1.7-12.7); Neutrophils % 64.7 % (38.7-73.9); Platelet Count 277 T/CUMM (130-400); Red Blood Count 3.54 MC/CUMM (3.8-5.5); Red Cell Distribution Width 14.5 % (9.3-17.3); White Blood Count 14.7 T/CUMM (4-12)
[2020-09-19 07:44] LABS: Alanine Aminotransferase 85 U/L (16-61); Alkaline Phosphatase 74 U/L (45-117); Aspartate Amino Transferase 37 U/L (0-37); Bilirubin,Indirect 0.6 MG/DL (0.0-1.0); Blood Urea Nitrogen 10 MG/DL (7-18); Calcium 8.4 MG/DL (8.5-10.1); Carbon Dioxide 23 MMOL/L (21-32); Estimated Glom Filtration Rate 100 ML/MIN; Glucose 110 MG/DL (74-106); Potassium 3.7 MMOL/L (3.5-5.1); Sodium 136 MMOL/L (136-145); Total Protein 6.8 G/DL (6.4-8.3)
[2020-09-19] MEDS ORDERED: FUROSEMIDE 40 MG/4 ML VIAL IV ONE (09:23)
[2020-09-19] MEDS: LEVOFLOXACIN 500 MG TABLET PO SCH (10:24)
[2020-09-19] MEDS: FERROUS SULFATE 325 MG TABLET PO SCH (10:24)
[2020-09-19] MEDS: PANTOPRAZOLE 40 MG TABLET PO SCH (10:24)
[2020-09-19] MEDS: POTASSIUM CHLORIDE 10 MEQ TABLET PO SCH (10:24)
[2020-09-19] MEDS: ASPIRIN EC 81 MG TABLET PO SCH (10:24)
[2020-09-19] MEDS: DOCUSATE SODIUM 100 MG CAPSULE PO SCH (10:24)
[2020-09-19] MEDS: CHLORHEXIDINE 0.12% ORAL RINSE 60 ML BOTTLE SWISH/SPIT SCH ×2 (10:25→21:45)
[2020-09-19] MEDS: FUROSEMIDE 20 MG TABLET PO SCH (10:37)
[2020-09-20] MEDS: ALBUTEROL/IPRATROPIUM 3 ML NEB RESP TX SCH ×2 (00:24→07:25)
[2020-09-20] MEDS: oxyCODONE/ACETAMINOPHEN 5-325 MG TABLET PO PRN (04:57)
[2020-09-20 06:36] LABS: Basophils # 0.1 10*3/uL (0.0-0.2); Basophils % 0.5 % (0.0-0.8); Eosinophils # 0.6 10*3/uL (0.0-0.87); Eosinophils % 4.1 % (0.00-10.9); Hematocrit 31.8 VOL% (42.0-52.0); Hemoglobin 10.7 GM/DL (14.0-18.0); Immature Granulocytes % 1.6 %; Immature Granulocytes Absolute 0.23 #; Lymphocytes % 14.1 % (21.2-54.2); Mean Corpuscular HGB Conc 33.6 GM/DL (32-36); Mean Corpuscular Volume 90.3 FL (87-102); Mean Platelet Volume 10.4 FL (9.6-12.0); Monocytes % 13.4 % (1.7-12.7); Neutrophils % 66.3 % (38.7-73.9); Platelet Count 293 T/CUMM (130-400); Red Blood Count 3.52 MC/CUMM (3.8-5.5); Red Cell Distribution Width 14.5 % (9.3-17.3); White Blood Count 14.3 T/CUMM (4-12)
[2020-09-20 07:01] LABS: Calcium 8.6 MG/DL (8.5-10.1); Osmolality,Calculated 271.8 MOS/KG (273-304); Potassium 3.8 MMOL/L (3.5-5.1)
[2020-09-20 07:17] LABS: Alanine Aminotransferase 70 U/L (16-61); Albumin 3.1 G/DL (3.4-5.0); Alkaline Phosphatase 77 U/L (45-117); Aspartate Amino Transferase 36 U/L (0-37); Bilirubin,Indirect 0.9 MG/DL (0.0-1.0); Blood Urea Nitrogen 9 MG/DL (7-18); Calcium 8.7 MG/DL (8.5-10.1); Carbon Dioxide 24 MMOL/L (21-32); Estimated Glom Filtration Rate 102 ML/MIN; Glucose 110 MG/DL (74-106); Osmolality,Calculated 272.8 MOS/KG (273-304); Potassium 3.9 MMOL/L (3.5-5.1); Sodium 137 MMOL/L (136-145); Total Protein 6.5 G/DL (6.4-8.3)
[2020-09-20 08:15] VITALS: BP 117/68
[2020-09-20] MEDS: DOCUSATE SODIUM 100 MG CAPSULE PO SCH (08:49)
[2020-09-20] MEDS: ASPIRIN EC 81 MG TABLET PO SCH (08:49)
[2020-09-20] MEDS: POTASSIUM CHLORIDE 10 MEQ TABLET PO SCH (08:49)
[2020-09-20] MEDS: PANTOPRAZOLE 40 MG TABLET PO SCH (08:49)
[2020-09-20] MEDS: FERROUS SULFATE 325 MG TABLET PO SCH (08:50)
[2020-09-20] MEDS: LEVOFLOXACIN 500 MG TABLET PO SCH (08:50)
[2020-09-20] MEDS: CHLORHEXIDINE 0.12% ORAL RINSE 60 ML BOTTLE SWISH/SPIT SCH (08:51)
[2020-09-20] MEDS: FUROSEMIDE 20 MG TABLET PO SCH (08:53)
== END 2020-09-20 12:00 | disposition home or self-care (01) | DRG 219 ==
LOC: N.CVR 14:11 → N.TELES 09-15 10:35